=== PATIENT | female | born 2000 | race Caucasian/White ===

== ENCOUNTER 2021-01-13 21:26 | Emergency (ER) | payer OTHER ==
[~2021-01-13] VITALS: Ht 170.2 cm; Wt 73.5 kg
[2021-01-14 03:29] VITALS: BP 145/79
[2021-01-14] MEDS ORDERED: KETOROLAC 30 MG/ML 1ML VIAL IV ONE (06:05)
[2021-01-14] MEDS ORDERED: KETO10TAB PO ×2 (06:08→08:22)
[2021-01-14 06:09] LABS: BASO # 0.1 10^3/uL (0.0-0.2); EOS # 0.1 10^3/uL (0.0-0.5); EOS % 1.9 % (0.0-3.0); HEMATOCRIT 41.3 % (36.0-47.0); HEMOGLOBIN 13.9 g/dl (12.0-15.5); LYMPH # 2.2 10^3/uL (1.5-5.0); LYMPH % 38.4 % (24.0-44.0); MEAN CORPUSCULAR HEMOGLOBIN 29.3 pg (27.0-33.0); MEAN CORPUSCULAR HGB CONC 33.7 g/dl (32.0-36.5); MEAN CORPUSCULAR VOLUME 86.9 fl (80.0-96.0); MONO # 0.5 10^3/uL (0.0-0.8); MONO % 9.3 % (2.0-8.0); NEUTROPHILS # 2.8 10^3/uL (1.5-8.5); NEUTROPHILS % 49.2 % (36.0-66.0); PLATELET COUNT, AUTOMATED 206 10^3/uL (150-450); RED BLOOD COUNT 4.75 10^6/uL (4.00-5.40); WHITE BLOOD COUNT 5.8 10^3/uL (4.0-10.0)
[2021-01-14 06:45] LABS: BILIRUBIN,DIRECT 0.2 MG/DL (0.0-0.2); BILIRUBIN,TOTAL 0.7 MG/DL (0.2-1.0); TOTAL PROTEIN 7.4 GM/DL (6.4-8.2)
--- NOTE | 2021-01-14 09:38 | REPVR ---
PROCEDURE INFORMATION: Exam: US Nonobstetric Pelvis; Complete Exam date and time: 01/14/2021 5:54 AM Age: 20 years old Clinical indication: Pelvic pain TECHNIQUE: Imaging protocol: Transabdominal pelvic nonobstetric ultrasound. Complete exam. Real time ultrasound with image documentation. COMPARISON: No relevant prior studies available. FINDINGS: Uterus/cervix: The uterus measures 7.4 x 3.0 x 4.2 cm. AP endometrial stripe thickness measures 5 mm. Right adnexa: The right ovary measures 3.2 x 2.2 x 4.7 cm. Positive right ovarian blood flow. Left adnexa: Left ovary measures 2.6 x 2.5 x 2.9 cm. Positive left ovarian blood flow. Intraperitoneal space: No intraperitoneal fluid. Urinary bladder: Normal. IMPRESSION: No significant pelvic abnormality. Electronically signed by: Nancy Acevedo On 01/14/2021 09:38:07 AM
== END 2021-01-14 06:43 | disposition home or self-care (01) ==
LOC: M ED 21:26
DX: R10.2 Pelvic and perineal pain (principal)
CPT/HCPCS: 76856; 80047; 80076; 81001; 83690; 84702; 85025; 87086; 93976; 96374; 99283; J1885

== ENCOUNTER → 2021-02-25 | Outpatient (REF) | payer OTHER ==
[~2021-02-25] MED LIST: KETO10TAB PO
== END ==
LOC: M LAB REF 19:39
PROVIDERS: ATTEND Physician Assistant
DX: R10.32 Left lower quadrant pain (principal)